=== PATIENT | male | born 1940 | race Caucasian/White ===

== ENCOUNTER → 2018-04-03 | Day surgery (SDC) | payer MEDICARE ==
[~2018-04-03] MED LIST: AMLO10TA8 PO; ASPI325T8 PO; ATOR10TA60 PO; CARV3.1210 PO; CARV6.2511 PO; DOCU-109 PO; GLUC1CAP57 PO; HYDR-2761 PO; HYDR-2765 PO; HYDR12.575 PO; HYDR12.58 PO; HYDROmorphone 2 MG/ML VIAL IV PRN; IV RINGERS,LACTATED 1000ML 1,000 ML IV ONE; IV RINGERS,LACTATED 1000ML 1,000 ML IV SCH; LATA2.5D3 EACHEYE; LIDOCAINE 1% PF 2 ML VIAL. ID PRN; LISI-130 PO; MORPHINE SULFATE 4 MG/ML VIAL. IV PRN; MULT1TAB52 PO; NAPR-514 PO; ONDANSETRON PF 4 MG/2 ML VIAL. IV PRN; OXYC1TAB15 PO; Oxycodone Hcl/Acetaminophen PO; PROCHLORPERAZINE 10 MG/2 ML VIAL. IV PRN; PROPOFOL 40 ML IV ONE; TIMO10DR5 EACHEYE; WARF-78 PO; WARF1TAB74 PO; fentaNYL PF VIAL 100 MCG/2 ML VIAL IV PRN
[2018-04-03 09:16] VITALS: BP 121/59
--- NOTE | 2018-04-03 19:15 | CONS ---
DATE OF CONSULTATION: 04/03/2018 REASON FOR CONSULTATION: History of colonic polyps. HISTORY OF PRESENT ILLNESS: A 77-year-old male with past medical history significant for hypertension, back surgery, joint replacements is seen for surveillance colonoscopy. Bowel habits are regular without diarrhea or constipation. There has been no melena and/or hematochezia. Weight and appetite are stable and he is otherwise without additional complaints. PAST MEDICAL HISTORY: Hypertension, osteoarthrosis, status post back and hip surgeries, history of melanoma resection, history of prostate cancer, status post radiation therapy. SOCIAL HISTORY: He is a social drinker, nonsmoker. FAMILY HISTORY: Noncontributory. PAST SURGICAL HISTORY: Back surgery, joint replacement of bilateral hips, prostate radiation. REVIEW OF SYSTEMS: As per records. PHYSICAL EXAMINATION: GENERAL: Reveals a well-nourished, well-developed male. He is alert, cooperative, in no acute distress. VITAL SIGNS: Temperature 98, pulse 63, respiratory rate is 18. HEENT: Normocephalic and atraumatic head. Pupils and extraocular muscles are not tested. Sclerae anicteric. NECK: Supple. LUNGS: Clear. CARDIOVASCULAR: Reveals an S1, S2 without S3, S4 or appreciable murmur. ABDOMEN: Reveals a soft abdomen, normal bowel sounds without appreciable hepatosplenomegaly. EXTREMITIES: Reveals no cyanosis, clubbing or edema. IMPRESSION AND PLAN: History of colonic polyps. Surveillance colonoscopy is recommended at this time. Risks and benefits of procedure including risk of hemorrhage or perforation requiring operation have been discussed. The patient is willing to proceed. I would like to thank Dr. Jasvir Hunter for allowing us to consult and participate in the patient's care. YEIMY ALLRED MD DR: RELL/dano JOB#: [id number] / [id number]
--- NOTE | 2018-04-06 17:07 | PATHOLOGY ---
[facility] Accession Number: [id number] . 01 Material submitted: . PART A: RECTAL POLYP PART B: ASCENDING COLON POLYP PART C: SIGMOID COLON POLYP . 02 Diagnosis: A. Colorectal biopsy, rectal polyp: - Tubular adenoma. . B. Colon biopsies, ascending colon polyp: - Tubular adenoma. . C. Colon biopsy, sigmoid colon polyp: - Tubular adenoma. [facility]/04/06/2018 . 02 Comment: There is no high-grade dysplasia or evidence of malignancy. (JPM:[facility] 04/06/2018) . 02 Electronically signed: . Tylor Beth MD, Pathologist NPI- [id number] . 01 Gross description: . A. The specimen is received in formalin, labeled "Ziyad Mcclain JR, rectal polyp", is a clemente polypoid tissue measuring 0.3 cm in greatest dimension, entirely submitted in A1. . B. The specimen is received in formalin, labeled "Johny , Ziyad, ascending colon polyp", are three clemente mucosal tissues ranging from a 0.1 cm up to 0.5 cm in greatest dimension and measuring 0.7 x 0.5 x 0.1 cm in aggregate, entirely submitted in B1. . C. The specimen is received in formalin, labeled "Johny , Ziyad, sigmoid colon polyp", is a clemente, rubbery sessile polyp measuring 0.6 x 0.4 x 0.2 cm, inked black, bisected and entirely submitted in C1. ([facility]; 04/03/2018) SHS/SHS . 02 Pathologist provided ICD-10: D12.8, D12.2 . 02 CPT . 840163, 201865, 716027 Specimen Comment: A courtesy copy of this report has been sent to Specimen Comment: [phone], . Specimen Comment: Report sent to / DR CASON Specimen Comment: A duplicate report has been generated due to demographic updates. Performed at: 01 [facility] [address] [id number] MD Godfrey Mcgee MD Phone: [phone] Performed at: 02 [facility] [address] [place], [place] [id number] MD Tylor Beth MD Phone: [phone]
== END | disposition home or self-care (01) ==
LOC: ENDOS 06:55
PROVIDERS: ATTEND Internal Medicine Gastroenterology
DX: Z12.11 Encounter for screening for malignant neoplasm of colon (principal); D12.2 Benign neoplasm of ascending colon; D12.5 Benign neoplasm of sigmoid colon; D12.8 Benign neoplasm of rectum; K57.30 Diverticulosis of large intestine without perforation or abscess without bleeding; K64.0 First degree hemorrhoids; I10 Essential (primary) hypertension; Z86.010 Personal history of colon polyps; Z98.890 Other specified postprocedural states; M19.90 Unspecified osteoarthritis, unspecified site; Z85.46 Personal history of malignant neoplasm of prostate; Z72.89 Other problems related to lifestyle; Z96.643 Presence of artificial hip joint, bilateral
CPT/HCPCS: 45380; 45385; 88305; J2704

== ENCOUNTER → 2019-09-22 | Outpatient (CLI) | payer MEDICARE ==
[2018-04-03 09:16] VITALS: BP 121/59
[~2019-09-22] MED LIST changes: +ASPI-630 PO; +DOXA2TAB2 PO; -HYDROmorphone 2 MG/ML VIAL IV PRN; +IOHEXOL 180 MG/ML 10 ML VIAL. ONE; -IV RINGERS,LACTATED 1000ML 1,000 ML IV ONE; -IV RINGERS,LACTATED 1000ML 1,000 ML IV SCH; -LIDOCAINE 1% PF 2 ML VIAL. ID PRN; -MORPHINE SULFATE 4 MG/ML VIAL. IV PRN; +MULT-445 PO; -MULT1TAB52 PO; -ONDANSETRON PF 4 MG/2 ML VIAL. IV PRN; -PROCHLORPERAZINE 10 MG/2 ML VIAL. IV PRN; -PROPOFOL 40 ML IV ONE; +TAMS0.4C97 PO; -WARF-78 PO; +WARF1TAB2 PO; -WARF1TAB74 PO; +WARF5TAB2 PO; -fentaNYL PF VIAL 100 MCG/2 ML VIAL IV PRN; +methylPREDNISolone ACETATE 40 MG/ML VIAL. ONE; +methylPREDNISolone ACETATE 80 MG/ML VIAL. ONE
--- NOTE | 2019-09-22 13:32 | PDOC2 ---
INITIAL PAIN CONSULT DATE OF SERVICE: DOS: DATE: 09/22/19 TIME: 13:22 CHIEF COMPLAINT: Chief Complaint: Low back and right greater than left lower extremity pain HISTORY OF PRESENT ILLNESS: 78-year-old male with approximate 1 year history low back pain bilateral lower extremities mostly on the right lower extremity and hips but across the low back as well. Patient reports no specific injury or accident he is aware of because the pain is been getting worse over the past year or so especially over the past 6 or 8 weeks patient ports pain is constant sharp radiating the lower extremities again worse on the right side. Reports no loss of motor function but significant fatigability with standing walking where he feels unstable with his right leg when he is walking more than about 10 to 15 minutes. Patient which is better with sitting or laying down much worse with standing walking reports it does not awaken her from sleep at night does not affect his bowel bladder control but does affect his go to walk and is not use any assistive devices or canes or walker to ambulate. Patient is tried Tylenol which did not work is also tried ibuprofen which worked only mildly he has had previous physical therapy which was helpful at the time about 6 months ago or so or longer also epidural injections about 6+ years ago which worsened significantly helpful for about 3 years patient reports no other treatments at this time. Patient rates his disability rating 0-10 10 being the worst as an 8 on a scale of 10 with family home with possibilities 8 with recreation 6 with social activity 3 with self-care activities 0 with occupation sexual behavior or life support activities. Patient did have a CT scan of the lumbar spine showing posterior stabilization interbody fusion L4-5 with residual anterolisthesis of L 4 and L5 multilevel lumbar spondylosis most prominent L3-4 and L5-S1 and multilevel neuroforaminal narrowing most prominent L5-S1. PAST MEDICAL HISTORY: PMH: Hearing loss glaucoma eyeglasses cigarette smoking quit 40 years ago, hypertension, arthritis, obesity PREVIOUS SURGERIES: Past Surgical Hx: Low back surgery 2014 with fusion, left and right hip replacement 2014, cataract extraction 2018 CURRENT MEDICATIONS: Current Meds: Active Scripts Medications Dose Route/Sig Max Daily Dose Days Date Category Dose Instructions Aspirin 81 Mg Tab.chew 1 Tab PO DAILY 09/22/19 Reported Multivitamins (Multivitamin) 1 Each Tablet 1 Tab PO DAILY 04/03/18 Reported Hydrochlorothiazide Capsule (Hydrochlorothiazide) 12.5 Mg Capsule 1 Cap PO DAILY 05/09/15 Reported LAST DOSE GIVEN: DATE:05-26-15 TIME:8:30 NEXT DOSE DUE: DATE:05-26-14 TIME:9:00 a.m. Carvedilol (Carvedilol) 6.25 Mg Tablet 6.25 Mg PO BIDWMEALS 12/28/14 Reported LAST DOSE GIVEN: DATE:05-26-15 TIME:8:30 a.m. NEXT DOSE DUE: DATE:05-26-15 TIME:5:00 p.m. Lisinopril 40 Mg Tablet 40 Mg PO DAILY 04/04/14 Reported Last dose given: 9:00 a.m. Next dose due: 05-27-15 9:00 a.m. Amlodipine Besylate 10 Mg Tablet 10 Mg PO DAILY 04/04/14 Reported LAST DOSE GIVEN: DATE:05-26-15 TIME:8:30 a.m. NEXT DOSE DUE: DATE:05-27-15 TIME:9:00 a.m. ALLERGIES; Allergies: Coded Allergies: No Known Drug Allergies (Unverified , 04/03/18) FAMILY HISTORY: Family Hx: Cancer in both parents SOCIAL HISTORY: Social Hx: Patient does not smoke drinks alcohol about 4 drinks a week does not use any illegal illicit or recreational drugs is lives with his spouse lives locally in [facility] he is currently retired. REVIEW OF SYSTEMS: ROS: Review of systems is positive for those items mentioned in his present illness all systems reviewed otherwise negative complete formal document on patient's ch art PHYSICAL EXAM: VS: Blood pressure 159/83 pulse 67 respirations 18 temperature 90.6 F height is 5 feet 6 inches weight is 2 5 7 pounds PE: PHYSICAL EXAMINATION: GENERAL: The patient is awake, alert, oriented, appropriate, very pleasant demeanor HEENT: Shows normocephalic, atraumatic. Extraocular movements are intact and symmetrical. Oral cavity: Mucous membranes moist and pink. Dentition is intact. NECK: Shows anterior throat supple without palpable lymphadenopathy noted. Swallow reflex symmetrical. CHEST: Shows normal on inspection. Breath sounds are clear, no rales rhonchi or wheezes auscultated. HEART: Shows S1, S2 clear. No murmurs auscultated. ABDOMEN: Soft, nontender, nondistended, obese. No palpable organomegaly is noted. No rebound or guarding demonstrated. BACK: Shows spine grossly in the midline. Normal-appearing cervical lordotic curvature. There is slightly increased thoracic kyphosis, some minor flattening of the lumbar lordotic curvature. Lumbar paraspinous muscles show symmetrical on inspection, on palpation shows some moderate tenderness diffusely throughout the upper, middle and lower distribution of the paraspinous muscles bilaterally without specific trigger points, without radiation of pain. The patient has good rotational motion of the lumbar spine, both laterally as well as extension and flexion without significant difficulty. No tenderness over the spinous processes, sacrum or sacroiliac regions. EXTREMITIES: Lower extremities show deep tendon reflexes 2+ in the patellar and tendo calcaneus tendons. Motor exam is 5 on a scale of 5 with right dorsiflexion, extension, quadriceps and hamstring flexion and 5/5 on the left. Peripheral pulses are 1+ posterior tibial. No peripheral edema is noted bilaterally. Lower extremities are warm and dry to touch, equal in color and appearance. Straight leg raise noted to be positive on the right about 40 degrees, left side is negative. Gaenslen's and Douglas's maneuvers are negative as well. The patient is able to able to stand stand on his toes without significant difficulty walks with a slight favoring gait does appear to favor the right lower extremity slightly but without any assistive device such as canes or walkers. SKIN: Shows warm and dry, good turgor. No edema. No sores, rashes or bruising throughout. IMPRESSION: Impression: A 78-year-old male with approximate one-year history increasing pain low back into the right greater than left lower extremity in a radicular fashion. CT scan lumbar spine as noted Hypertension Arthritis History of prostate cancer Plan: Options were discussed with the patient including conservative medical management, physical therapies, and interventional techniques and he would like to pursue interventional techniques. We discussed a lumbar epidural steroid injection using descriptions as well as anatomical models to describe the procedure. Risks are then discussed including but not limited to bleeding infection possibility of epidural hematoma subsequent neurological compromise dural puncture headache spinal cord and or nerve damage side effects of steroid medication/guarding pain control. Patient understands and wishes to proceed. Patient will return to clinic in approximate 2 weeks for follow-up was counseled as to return appointment activity level and side effects to be aware. Procedure is lumbar epidural steroid injection under local anesthetic using sterile prep and drape at the L5- S1 level using C-arm fluoroscopic guidance in both AP and lateral views medications injected is 120 mg Depo-Medrol + 10 mL preservative-free normal saline and 2 mL contrast- condition at discharge is stable patient tolerated procedure well had no complications. GISELL ARROYO MD Sep 22, 2019 13:32
== END | disposition home or self-care (01) ==
LOC: PNCL 08:12
PROVIDERS: ATTEND Anesthesiology
DX: M47.896 Other spondylosis, lumbar region (principal); I10 Essential (primary) hypertension; M54.5 Low back pain; M19.90 Unspecified osteoarthritis, unspecified site; H91.8X9 Other specified hearing loss, unspecified ear; Z85.46 Personal history of malignant neoplasm of prostate; Z87.891 Personal history of nicotine dependence; Z96.641 Presence of right artificial hip joint; Z98.890 Other specified postprocedural states; Z79.899 Other long term (current) drug therapy
CPT/HCPCS: 62323; J1030; J1040; Q9965

== ENCOUNTER → 2019-10-06 | Outpatient (CLI) | payer MEDICARE ==
[2018-04-03 09:16] VITALS: BP 121/59
--- NOTE | 2019-10-06 08:37 | PDOC ---
Progress Note - Pain Clinic Date of Service: DOS: DATE: 10/06/19 TIME: 08:34 Diagnosis: Dx: Lumbar radiculopathy with lumbar degenerative disc disease post lumbar laminectomy syndrome and spondylosis History or Present Illness: HPI: 78-year-old male returns follow-up status post lumbar epidural transition x1. Patient reports about 50% improvement in the low back and right lower extremity pain patient which is been leg is doing much better the pain is mainly in his low back and most noticeably with bending and stooping when he is working in his yard. Patient reports no new motor or sensory deficits no new bowel or bladder incontinence other complaints. Patient ports he is sleeping better at night has done increased distance walking with doing household activities with greater ease and comfort as well. Patient rates his pain a 10 on a scale of 10 is worse the past week 8 on average 3 this least is an 8 today patient describes the pain as aching and stabbing sometimes severe burning occasionally in the right lower extremity mostly in the low back at this time. Physical Exam: VS: Blood pressure is 171/90 pulse 56 respirations 18 temperature 98.7 F weight is 2 4 2 pounds PE: PHYSICAL EXAMINATION: GENERAL: The patient is awake, alert, oriented, appropriate, very pleasant demeanor HEENT: Shows normocephalic, atraumatic. Extraocular movements are intact and symmetrical. Oral cavity: Mucous membranes moist and pink. NECK: Shows anterior throat supple without palpable lymphadenopathy noted. Swallow reflex symmetrical. CHEST: Shows normal on inspection. Breath sounds are clear bilaterally, no rales rhonchi or wheezes auscultated. HEART: Shows S1, S2 clear. No murmurs auscultated. ABDOMEN: Soft, nontender, nondistended, obese. No palpable organomegaly is noted. No rebound or guarding demonstrated. BACK: Shows spine grossly in the midline. Normal-appearing cervical lordotic curvature. There is slightly increased thoracic kyphosis, some minor flattening of the lumbar lordotic curvature. Lumbar paraspinous muscles show symmetrical on inspection, on palpation shows some moderate tenderness diffusely throughout the upper, middle and lower distribution of the paraspinous muscles bilaterally but without specific trigger points, without radiation of pain. The patient has good rotational motion of the lumbar spine, both laterally as well as extension and flexion without significant difficulty. No tenderness over the spinous processes, sacrum or sacroiliac regions. EXTREMITIES: Lower extremities show deep tendon reflexes 2+ in the patellar and tendo calcaneus tendons. Motor exam is 5 on a scale of 5 with right dorsiflexion, extension, quadriceps and hamstring flexion and 5/5 on the left. Peripheral pulses are 1 posterior tibial. No peripheral edema is noted bilaterally. Lower extremities are warm and dry to touch, equal in color and appearance. Procedure: Procedure: Options were discussed with the patient. Patient will chart reviewed his his cu rrent medication regimen updated current review of systems updated today as well. We will proceed with a second in a series lumbar epidural straight injection today with fluoroscopic guidance. Risks are discussed including but not limited to bleeding infection possibility of epidural hematoma subsequent neurological compromise dural puncture headache spinal cord and or nerve damage side effects of steroid medication/guarding pain control. Patient understands wished to proceed. Patient return to the clinic in approximately 2 weeks for follow-up. Patient was counseled as to return appointment as well as activity level and side effects to be aware. Medication Injected: Med Injected: Procedure is lumbar epidural steroid injection under local anesthetic using sterile prep and drape at the L5-S1 level using C-arm fluoroscopic guidance in both AP and lateral views medications injected is 120 mg Depo-Medrol + 10 mL preservative-free normal saline and 2 mL contrast- condition at discharge is stable patient tolerated procedure well had no complications. Condition at Discharge: Condition at Discharge: Condition at discharge stable patient procedure well had no complications. GISELL ARROYO MD Oct 06, 2019 08:37
== END | disposition home or self-care (01) ==
LOC: PNCL 07:59
PROVIDERS: ATTEND Anesthesiology
DX: M51.16 Intervertebral disc disorders with radiculopathy, lumbar region (principal); M47.896 Other spondylosis, lumbar region; I10 Essential (primary) hypertension; Z79.899 Other long term (current) drug therapy; Z83.3 Family history of diabetes mellitus; Z83.6 Family history of other diseases of the respiratory system
CPT/HCPCS: 62323; J1030; J1040; Q9965

== ENCOUNTER → 2019-10-27 | Outpatient (CLI) | payer MEDICARE ==
[2018-04-03 09:16] VITALS: BP 121/59
--- NOTE | 2019-10-27 08:32 | PDOC ---
Progress Note - Pain Clinic Date of Service: DOS: DATE: 10/27/19 TIME: 08:28 Diagnosis: Dx: Lumbar radiculopathy with lumbar degenerative disc disease and lumbar postlaminectomy syndrome and lumbar spondylosis History or Present Illness: HPI: 78-year-old male returns follow-up status post lumbar epidurals injection x2. Patient reports proximately 50% improvement overall but still pain low back and right lower extremity. Patient reports is radiating the right hip posterior gluteus posterior thigh and calf worse with walking standing changing positions also in the low back with bending extension especially forward flexion but sometimes in right and left lateral rotation. Patient rates pain as a 9 on scale 10 is worse over the past week 7 on average and a 6 at its least is a 7 today. Patient reports pain is aching and dull shooting and stabbing at times severe with repetitive activity. Patient ports initially is doing better with distance walking doing household activities try with greater ease and comfort still reports he sleeps well at night does not awaken him from sleep. Patient reports no new motor or sensory deficits no new bowel or bladder incontinence or other complaints. Physical Exam: VS: Pressure is 148/74 pulse 63 respirations 18 temperature 90.8 he was Fahrenheit and weight is 238 pounds PE: PHYSICAL EXAMINATION: GENERAL: The patient is awake, alert, oriented, appropriate, very pleasant demeanor HEENT: Shows normocephalic, atraumatic. Extraocular movements are intact and symmetrical. Oral cavity: Mucous membranes moist and pink. Dentition is intact. NECK: Shows anterior throat supple without palpable lymphadenopathy noted. Swallow reflex symmetrical. CHEST: Shows normal on inspection. Breath sounds are clear bilaterally. HEART: Shows S1, S2 clear. No murmurs auscultated. ABDOMEN: Soft, nontender, nondistended, obese. No palpable organomegaly is noted. No rebound or guarding demonstrated. BACK: Shows spine grossly in the midline. Normal-appearing cervical lordotic curvature. There is slightly increased thoracic kyphosis, some minor flattening of the lumbar lordotic curvature. Lumbar paraspinous muscles show symmetrical on inspection, on palpation shows some moderate tenderness diffusely throughout the upper, middle and lower distribution of the paraspinous muscles bilaterally without specific trigger points, without radiation of pain. The patient has good rotational motion of the lumbar spine, both laterally as well as extension and flexion with only moderate pain with extension but not with forward flexion. No tenderness over the spinous processes, sacrum or sacroiliac regions. EXTREMITIES: Lower extremities show deep tendon reflexes 2+ in the patellar and tendo calcaneus tendons. Motor exam is 5 on a scale of 5 with right dorsiflexion, extension, quadriceps and hamstring flexion and 5/5 on the left. Peripheral pulses are 1+ posterior tibial. No peripheral edema is noted bilaterally. Lower extremities are warm and dry to touch, equal in color and appearance. SKIN: Shows warm and dry, good turgor. No edema. No sores, rashes or bruising throughout. Procedure: Procedure: Options were discussed with the patient. Patient's old chart was reviewed his his current medication regimen updated current review of systems updated today as well. We will proceed with a third in the series lumbar epidural straight injection today with fluoroscopic guidance. Risks were discussed including but not limited to: Bleeding, infection, possibility of epidural hematoma and subsequent neurological compromise, dural puncture, headaches, spinal cord and/or nerve damage, side effects of steroid medication, and poor results regarding pain control. Patient understands wished to proceed. Patient return to clinic in approximately 2 weeks for follow-up was counseled as to return appointment activity level and side effects to be aware of. Medication Injected: Med Injected: Procedure is lumbar epidural steroid injection under local anesthetic using sterile prep and drape at the L5-S1 level using C-arm fluoroscopic guidance in both AP and lateral views medications injected is 120 mg Depo-Medrol + 10 mL preservative-free normal saline and 2 mL contrast- condition at discharge is stable patient tolerated procedure well had no complications. Condition at Discharge: Condition at Discharge: Condition at discharge stable patient tolerated procedure well had no complications. GISELL ARROYO MD Oct 27, 2019 08:32
== END | disposition home or self-care (01) ==
LOC: PNCL 07:51
PROVIDERS: ATTEND Anesthesiology
DX: M51.16 Intervertebral disc disorders with radiculopathy, lumbar region (principal); M47.816 Spondylosis without myelopathy or radiculopathy, lumbar region; M96.1 Postlaminectomy syndrome, not elsewhere classified; I10 Essential (primary) hypertension; Z87.891 Personal history of nicotine dependence; Z79.82 Long term (current) use of aspirin; Z79.899 Other long term (current) drug therapy; Z83.3 Family history of diabetes mellitus; Z82.5 Family history of asthma and other chronic lower respiratory diseases
CPT/HCPCS: 62323; J1030; J1040; Q9965

== ENCOUNTER → 2019-11-10 | Outpatient (CLI) | payer MEDICARE ==
[2018-04-03 09:16] VITALS: BP 121/59
[~2019-11-10] MED LIST changes: +BUPIVACAINE MPF 0.25% 10 ML VIAL. ONE
--- NOTE | 2019-11-10 08:40 | PDOC ---
Progress Note - Pain Clinic Date of Service: DOS: DATE: 11/10/19 TIME: 08:35 Diagnosis: Dx: Lumbar radiculopathy with lumbar degenerative disc disease lumbar postlaminectomy syndrome and lumbar and lumbosacral spondylosis History or Present Illness: HPI: 78-year-old male returns follow-up status post lumbar epidural straight injections x3. Patient reports near 1% improvement in the pain in his hips and lower extremities but still has significant pain in the low back itself patient reports is worse with walking standing changing positions almost completely relieved with sitting even for about 5 minutes patient reports he does not awaken from sleep at night not bothering him when he is laying down or sitting patient reports pain is a 9 on a scale of 10 at its worse of the past week when he is up and around 6 on average for this least is a 4 today patient reports it can be severe is aching and dull tight in the low back stabbing at times as well this is worse with extension lumbar spine bending or twisting tends aggravate as well patient reports bending in the waist is the worst and standing for more than 10 to 15 minutes. Patient reports no new motor or sensory deficits no new bowel or bladder incontinence or other complaints Physical Exam: VS: Blood pressure is 159/82 pulse 60 respirations 16 temperature 90.4 F weight is 235 pounds PE: PHYSICAL EXAMINATION: GENERAL: The patient is awake, alert, oriented, appropriate, very pleasant demeanor HEENT: Shows normocephalic, atraumatic. Extraocular movements are intact and symmetrical. NECK: Shows anterior throat supple without palpable lymphadenopathy noted. Swallow reflex symmetrical. CHEST: Shows normal on inspection. Breath sounds are clear bilaterally. HEART: Shows S1, S2 clear. No murmurs auscultated. ABDOMEN: Soft, nontender, nondistended, obese. No palpable organomegaly is noted. No rebound or guarding demonstrated. BACK: Shows spine grossly in the midline. Normal-appearing cervical lordotic curvature. There is slightly increased thoracic kyphosis, some minor flattening of the lumbar lordotic curvature. Lumbar paraspinous muscles show symmetrical on inspection, on palpation shows some moderate tenderness diffusely throughout the upper, middle and lower distribution of the paraspinous muscles bilaterally without specific trigger points, without radiation of pain. The patient has good rotational motion of the lumbar spine, with extension shows significant pain in the low back itself without radiation this is true with right and left lateral rotation to a moderate extent greater than 10 degrees forward flexion 45 degrees decreases the pain and is performed without difficulty. No tenderness over the spinous processes, sacrum or sacroiliac regions. EXTREMITIES: Lower extremities show deep tendon reflexes 2+ in the patellar and tendo calcaneus tendons. Motor exam is 5 on a scale of 5 with right dorsiflexion, extension, quadriceps and hamstring flexion and 5/5 on the left. Peripheral pulses are 1+ posterior tibial. No peripheral edema is noted bilaterally. Lower extremities are warm and dry to touch, equal in color and appearance. SKIN: Shows warm and dry, good turgor. No edema. No sores, rashes or bruising throughout. Procedure: Procedure: Options were discussed with the patient. Patient's old chart was reviewed his his current medication regimen updated current review of systems updated today as well. We will proceed with bilateral L4-5 and L5-S1 facet joint injections with fluoroscopic guidance. Risks were discussed including but not limited to: Bleeding, infection, possibility of epidural hematoma and subsequent neurological compromise, dural puncture, headaches, spinal cord and/or nerve damage, side effects of steroid medication, and poor results regarding pain control. Patient understands wished to proceed. Patient return to the clinic in approximate 2 weeks for follow-up was counseled as to return appointment activity level and side effects to be aware of Medication Injected: Med Injected: Under sterile prep and drape using C-arm fluoroscopic guidance AP and lateral and oblique views, bilateral L4-5 and L5-S1 facet joint injections performed, medications injected: 120 mg Depo-Medrol +4 cc 0.25% bupivacaine +2 cc contrast, after negative aspiration. Condition at discharge stable, patient tolerated the procedure well and no complications. Condition at Discharge: Condition at Discharge: Condition at discharge stable patient tolerated the procedure well had no complications. GISELL ARROYO MD Nov 10, 2019 08:40
== END | disposition home or self-care (01) ==
LOC: PNCL 07:54
PROVIDERS: ATTEND Anesthesiology
DX: M51.16 Intervertebral disc disorders with radiculopathy, lumbar region (principal); M51.17 Intervertebral disc disorders with radiculopathy, lumbosacral region; M46.1 Sacroiliitis, not elsewhere classified; M47.897 Other spondylosis, lumbosacral region; M47.896 Other spondylosis, lumbar region; I10 Essential (primary) hypertension; Z87.891 Personal history of nicotine dependence; Z79.82 Long term (current) use of aspirin; Z79.899 Other long term (current) drug therapy
CPT/HCPCS: 64635; 64636; J1030; J1040; J3490; Q9965

== ENCOUNTER → 2019-11-24 | Outpatient (CLI) | payer MEDICARE ==
[2018-04-03 09:16] VITALS: BP 121/59
[~2019-11-24] MED LIST changes: +AMLO-187 PO; -AMLO10TA8 PO
--- NOTE | 2019-11-24 08:32 | PDOC ---
Progress Note - Pain Clinic Date of Service: DOS: DATE: 11/24/19 TIME: 08:29 Diagnosis: Dx: Lumbar degenerative disc disease with lumbar postlaminectomy syndrome and lumbar and lumbosacral spondylosis History or Present Illness: HPI: 78-year-old male returns for follow-up status post lumbar epidural stimulation x3 and lumbar L4-5 and L5-S1 facet joint injections x1. Patient reports the leg is still doing much better is about 50% improvement with his back pain after the injections with his facet joints. Patient reports still pain with working in the yard bending stooping changing positions and standing walking he says for more than about 5 to 10 minutes he has to sit down and rest because the pain in the back the legs however resolved no radiation of the lower extremities at this time patient comes the pain in the back is aching and tight rates it as a 9 on scale 10 is worse over the past week 6 on average 3 its least is a 6 today. Patient reports no new motor or sensory deficits no new bowel or bladder incontinence or other complaints sleeping better at night does not awaken him from sleep worse with standing and walking especially with working in his yard changing positions frequently. Physical Exam: VS: Blood pressure is 140/102 pulse 77 respirations 16 temperature is 98.1 F weight is 235 pounds PE: PHYSICAL EXAMINATION: GENERAL: The patient is awake, alert, oriented, appropriate, very pleasant demeanor HEENT: Shows normocephalic, atraumatic. Extraocular movements are intact and symmetrical. NECK: Shows anterior throat supple without palpable lymphadenopathy noted. Swallow reflex symmetrical. CHEST: Shows normal on inspection. Breath sounds are clear bilaterally, no rales rhonchi or wheezes. HEART: Shows S1, S2 clear. No murmurs auscultated. ABDOMEN: Soft, nontender, nondistended, obese. No palpable organomegaly is noted. No rebound or guarding demonstrated. BACK: Shows spine grossly in the midline. Normal-appearing cervical lordotic curvature. There is slightly increased thoracic kyphosis, some minor flattening of the lumbar lordotic curvature. Lumbar paraspinous muscles show symmetrical on inspection, on palpation shows some moderate tenderness diffusely throughout the upper, middle and lower distribution of the paraspinous muscles bilaterally, but without specific trigger points, without radiation of pain. The patient has good rotational motion of the lumbar spine, both laterally as well as extension and flexion without significant difficulty. No tenderness over the spinous processes, sacrum or sacroiliac regions. EXTREMITIES: Lower extremities show deep tendon reflexes 2+ in the patellar and tendo calcaneus tendons. Motor exam is 5 on a scale of 5 with right dorsiflexion, extension, quadriceps and hamstring flexion and 5/5 on the left. Peripheral pulses are 1+ posterior tibial. No peripheral edema is noted bilaterally. Lower extremities are warm and dry to touch, equal in color and appearance. SKIN: Shows warm and dry, good turgor. No edema. No sores, rashes or bruising throughout. Procedure: Procedure: Options were discussed with the patient. Patient's chart was reviewed his his current medication regimen updated current review of systems updated today as well. We will proceed with a repeat bilateral L4-5 and L5-S1 facet joint injections today with fluoroscopic guidance. Risks were discussed including but not limited to: Bleeding, infection, possibility of epidural hematoma and subsequent neurological compromise, dural puncture, headaches, spinal cord and/or nerve damage, side effects of steroid medication, and poor results regarding pain control. Patient understands wished to proceed. Patient will return to clinic in approximately 2 weeks for follow-up was counseled as to return appointment activity level and side effects to be aware of. Medication Injected: Med Injected: Under sterile prep and drape using C-arm fluoroscopic guidance AP and lateral and oblique views, bilateral L4-5 and L5-S1 facet joint injections, medications injected: 120 mg Depo-Medrol +4 cc 0.25% bupivacaine +2 cc contrast. Condition at discharge stable patient tolerated the procedure well and no complications. Condition at Discharge: Condition at Discharge: Condition at discharge is stable patient tolerated the procedure well had no complications. GISELL ARROYO MD Nov 24, 2019 08:32
== END ==
LOC: PNCL 07:56
PROVIDERS: ATTEND Anesthesiology
DX: M47.816 Spondylosis without myelopathy or radiculopathy, lumbar region (principal); M47.817 Spondylosis without myelopathy or radiculopathy, lumbosacral region; M46.1 Sacroiliitis, not elsewhere classified; M51.36 Other intervertebral disc degeneration, lumbar region; I10 Essential (primary) hypertension; Z87.891 Personal history of nicotine dependence; Z79.82 Long term (current) use of aspirin; Z79.899 Other long term (current) drug therapy; Z80.0 Family history of malignant neoplasm of digestive organs; Z83.3 Family history of diabetes mellitus
CPT/HCPCS: 64635; 64636; J1030; J1040; J3490; Q9965

== ENCOUNTER → 2020-01-18 | Outpatient (CLI) | payer MEDICARE ==
[2018-04-03 09:16] VITALS: BP 121/59
[~2020-01-18] MED LIST changes: +MELO15TA23 PO
--- NOTE | 2020-01-18 09:42 | PDOC ---
Progress Note - Pain Clinic Date of Service: DOS: DATE: 01/18/20 TIME: 09:37 Diagnosis: Dx: Lumbar degenerative disc disease with lumbar postlaminectomy syndrome and lumbar and lumbosacral spondylosis History or Present Illness: HPI: 79-year-old male returns follow-up status post lumbar epidural steroid action as well as bilateral L4-5 and L5-S1 facet joint injections. Patient reports only about 50% improvement after his last injections in the low back right side still worse than the left with walking standing changing position especially with extension lumbar spine and bending and flexing. Patient ports now is having pain radiate the right lower extremity at times which is new but has had epidural steroid injections which were initially helpful but is not due for these till March of next year. Patient reports pain with changing position especially with extension lumbar spine rates a 9 on scale 10 is worse with the past week 8 on average 7 its least and is an 8 today. Patient scribes pain is stabbing and constant in the low back itself. Patient reports is better with sitting or laying down does not awaken him sleep but prolonged sitting can i ncrease the pain as well especially on the right side. Patient reports no new motor or sensory deficits no new bowel or bladder incontinence or other complaints. Physical Exam: VS: Blood pressure is 148/86 pulse 75 respirations 16 temperature is 90.2 F weight is 240 pounds PE: PHYSICAL EXAMINATION: GENERAL: The patient is awake, alert, oriented, appropriate, very pleasant demeanor HEENT: Shows normocephalic, atraumatic. Extraocular movements are intact and symmetrical. Oral cavity: Mucous membranes moist and pink. NECK: Shows anterior throat supple without palpable lymphadenopathy noted. Swallow reflex symmetrical. CHEST: Shows normal on inspection. Breath sounds are clear bilaterally. HEART: Shows S1, S2 clear. No murmurs auscultated. ABDOMEN: Soft, nontender, nondistended, obese. No palpable organomegaly is noted. No rebound or guarding demonstrated. BACK: Shows spine grossly in the midline. Normal-appearing cervical lordotic curvature. There is slightly increased thoracic kyphosis, some minor flattening of the lumbar lordotic curvature. Lumbar paraspinous muscles show symmetrical on inspection, on palpation shows some moderate tenderness diffusely throughout the upper, middle and lower distribution of the paraspinous muscles, but without specific trigger points, without radiation of pain. The patient has good rota tional motion of the lumbar spine, both laterally and extension flexion with significant pain with extension and axial loading of the lumbar spine with pain greater on the right and left in the low back without radiation to lower extremities also with right and left lateral rotation show some moderate tenderness to the left and is more significant tenderness with right lateral rotation past 10 degrees. No tenderness over the spinous processes, sacrum or sacroiliac regions. EXTREMITIES: Lower extremities show deep tendon reflexes 2+ in the patellar and tendo calcaneus tendons. Motor exam is 5 on a scale of 5 with right dorsiflexion, extension, quadriceps and hamstring flexion and 5/5 on the left. Peripheral pulses are 1+ posterior tibial. No peripheral edema is noted bilaterally. Lower extremities are warm and dry to touch, equal in color and appearance. SKIN: Shows warm and dry, good turgor. No edema. No sores, rashes or bruising throughout. Procedure: Procedure: Options were discussed with the patient. Patient chart reviewed his medication regimen updated current review of systems updated today as well. We will proceed with repeat lumbar L4-5 and L5-S1 lumbar facet medial branch blocks with fluoroscopic guidance. Risks were discussed including but not limited to: Bleeding, infection, possibility of epidural hematoma and subsequent neurologi agnieszka compromise, dural puncture, headaches, spinal cord and/or nerve damage, side effects of steroid medication, spread to local anesthetic and numbness, and poor results regarding pain control. Patient understands wished to proceed. Patient will return to clinic in possibly 2 weeks for follow-up, was counseled as to return appointment activity level and side effects to be aware of. Medication Injected: Med Injected: Under sterile prep and drape using C-arm fluoroscopic guidance AP and lateral and oblique views, bilateral L4-5 and L5-S1 facet joint injections were performed, medications injected: 120 mg Depo-Medrol +4 cc 0.25% bupivacaine +2 cc contrast. Condition at discharge stable patient tolerated the procedure well and no complications. Condition at Discharge: Condition at Discharge: Condition at discharge is stable, patient tolerated procedure well and had no complications. GISELL ARROYO MD Jan 18, 2020 09:42
== END | disposition home or self-care (01) ==
LOC: PNCL 08:52
PROVIDERS: ATTEND Anesthesiology
DX: M51.36 Other intervertebral disc degeneration, lumbar region (principal); M47.817 Spondylosis without myelopathy or radiculopathy, lumbosacral region; M96.1 Postlaminectomy syndrome, not elsewhere classified; I10 Essential (primary) hypertension; E78.00 Pure hypercholesterolemia, unspecified; E66.9 Obesity, unspecified; M19.90 Unspecified osteoarthritis, unspecified site; Z85.828 Personal history of other malignant neoplasm of skin; Z86.010 Personal history of colon polyps; Z85.46 Personal history of malignant neoplasm of prostate; Z87.891 Personal history of nicotine dependence; Z79.82 Long term (current) use of aspirin; Z79.899 Other long term (current) drug therapy; Z98.890 Other specified postprocedural states; Z72.89 Other problems related to lifestyle; Z82.49 Family history of ischemic heart disease and other diseases of the circulatory system; Z83.3 Family history of diabetes mellitus
CPT/HCPCS: 64493; 64494; J1030; J1040; J3490; Q9965; 64635; 64636

== ENCOUNTER → 2020-02-01 | Outpatient (CLI) | payer MEDICARE ==
[2018-04-03 09:16] VITALS: BP 121/59
[~2020-02-01] MED LIST changes: -methylPREDNISolone ACETATE 40 MG/ML VIAL. ONE
--- NOTE | 2020-02-01 09:33 | PDOC ---
Progress Note - Pain Clinic Date of Service: DOS: DATE: 02/01/20 TIME: 09:29 Diagnosis: Dx: Lumbar radiculopathy with lumbar degenerative disc disease lumbar postlaminectomy syndrome and lumbar and lumbosacral spondylosis History or Present Illness: HPI: 79-year-old male returns follow-up status post lumbar epidural steroid injections x3 as well as bilateral facet injections x3 with about 50% imp rovement but minimal duration and significant pain now reported in the low back at this time radiating into the right lower extremity significantly in the posterior gluteus posterior thigh posterior calf and ankle on the right side worse with walking and standing. Patient reports is becoming more noticeable and the radiation is becoming more prominent in the right leg as previously it was mainly just limited to his low back. Patient reports becoming more constant more severe worse with walking worse with standing upright or sitting upright for greater than 20 to 30 minutes. Reports generally is not awakening from sleep at night better with laying down worse with walking and standing and sitting. Patient reports no new motor or sensory deficits no new bowel or bladder incontinence reports pain is a 9 on scale 10 is worse over the past week 8 on average 7 its least is an 8 today. Physical Exam: VS: Blood pressure is 157/80 pulse 69 respirations 16 temperature 90.2 F weight is 236 pounds PE: PHYSICAL EXAMINATION: GENERAL: The patient is awake, alert, oriented, appropriate, very pleasant demeanor HEENT: Shows normocephalic, atraumatic. Extraocular movements are intact and symmetrical. Oral cavity: Mucous membranes moist and pink. NECK: Shows anterior throat supple without palpable lymphadenopathy noted. Swallow reflex symmetrical. CHEST: Shows normal on inspection. Breath sounds are clear bilaterally, distant but no rales or rhonchi. HEART: Shows S1, S2 clear. No murmurs auscultated. ABDOMEN: Soft, nontender, nondistended, obese. No palpable organomegaly is noted. No rebound or guarding demonstrated. BACK: Shows spine grossly in the midline. Normal-appearing cervical lordotic curvature. There is slightly increased thoracic kyphosis, some minor flattening of the lumbar lordotic curvature. Lumbar paraspinous muscles show symmetrical on inspection, on palpation shows some moderate tenderness diffusely throughout the upper, middle and lower distribution of the paraspinous muscles, but without specific trigger points, without radiation of pain. The patient has good rotational motion of the lumbar spine, both laterally as well as extension and flexion without significant difficulty. No tenderness over the spinous processes, sacrum or sacroiliac regions. EXTREMITIES: Lower extremities show deep tendon reflexes 2+ in the patellar and tendo calcaneus tendons. Motor exam is 5 on a scale of 5 with right dorsiflexion, extension, quadriceps and hamstring flexion and 5/5 on the left. Peripheral pulses are 1+ posterior tibial. No peripheral edema is noted bilaterally. Lower extremities are warm and dry to touch, equal in color and appearance. SKIN: Shows warm and dry, good turgor. No edema. No sores, rashes or bruising throughout. Procedure: Procedure: Options were discussed with the patient. Patient chart reviewed his his current medication regimen updated current review of systems updated today as well. We will proceed with a right transforaminal selective nerve root block at the L5-S1 level with fluoroscopic guidance. Risks were discussed including but not limited to: Bleeding, infection, possibility of epidural hematoma and subsequent neurological compromise, dural puncture, headaches, spinal cord and/or nerve damage, internal injection of vertebral artery at that level and permanent ischemic damage, side effects of steroid medication, and poor results regarding pain control. Patient understands wished to proceed. Medication Injected: Med Injected: Under sterile prep and drape patient was placed in prone position using C-arm fluoroscopic guidance to identify the L5-S1 distribution oblique and slightly cephalad angled C arm. The left L5-S1 target was identified and using lidocaine for anesthetizing the skin 22-gauge Joanne pencil point needle was then used t o enter the skin and into the subcutaneous tissues using direct C-arm fluoroscopic guidance to guide the needle into the transforaminal aspect of the left L5-S1 vertebrae this was confirmed with lateral views showing the needle tip in the superior aspect of the paravertebral region. Aspiration was noted to be negative, -1.5 cc of contrast was then injected with good spread both me dially into the epidural space as well as laterally along the nerve root without uptake and without distribution and uptake on digital subtraction. At this time, a solution containing 2 cc of 0.25% bupivacaine and 80 mg of Depo-Medrol was then injected. Needle was withdrawn and sterile bandage was applied. Patient tolerated procedure well had no immediate complications Condition at Discharge: Condition at Discharge: Condition at discharge is stable, patient tolerated the procedure well and had no complications. GISELL ARROYO MD Feb 01, 2020 09:33
== END | disposition home or self-care (01) ==
LOC: PNCL 08:55
PROVIDERS: ATTEND Anesthesiology
DX: M51.16 Intervertebral disc disorders with radiculopathy, lumbar region (principal); M96.1 Postlaminectomy syndrome, not elsewhere classified; M47.27 Other spondylosis with radiculopathy, lumbosacral region; I10 Essential (primary) hypertension; E78.00 Pure hypercholesterolemia, unspecified; E66.9 Obesity, unspecified; M19.90 Unspecified osteoarthritis, unspecified site; Z85.828 Personal history of other malignant neoplasm of skin; Z85.46 Personal history of malignant neoplasm of prostate; Z87.891 Personal history of nicotine dependence; Z79.82 Long term (current) use of aspirin; Z79.899 Other long term (current) drug therapy; Z72.89 Other problems related to lifestyle; Z98.890 Other specified postprocedural states; Z82.49 Family history of ischemic heart disease and other diseases of the circulatory system; Z83.3 Family history of diabetes mellitus; Z80.0 Family history of malignant neoplasm of digestive organs
CPT/HCPCS: 64483; J1040; J3490; Q9965